=== PATIENT | female | born 1960 | race Caucasian/White ===

== ENCOUNTER 2018-07-13 10:57 | Emergency (ER) | payer OTHER ==
[~2018-07-13] VITALS: Ht 160 cm; Wt 83.0 kg
[2018-07-13] MEDS ORDERED: HYZAAR 100-12.1 EACH PO (11:12)
[2018-07-13] MEDS ORDERED: LOSARTAN POTAS100 MG PO (11:13)
[2018-07-13] MEDS ORDERED: NEURONTIN600 MG PO (11:13)
[2018-07-13] MEDS ORDERED: TOPROL XL50 M1 PO (11:13)
== END 2018-07-13 15:39 | disposition home or self-care (01) ==
LOC: ER 10:57
DX: S93.602A Unspecified sprain of left foot, initial encounter (principal); X50.0XXA Overexertion from strenuous movement or load, initial encounter; X50.9XXA Other and unspecified overexertion or strenuous movements or postures, initial encounter; Y93.41 Activity, dancing; Y92.89 Other specified places as the place of occurrence of the external cause; Y99.8 Other external cause status; M77.52 Other enthesopathy of left foot and ankle

== ENCOUNTER 2022-09-20 11:31 | Inpatient (IN) | payer OTHER ==
[~2022-09-20] VITALS: Ht 160 cm; Wt 84.4 kg
[~2022-09-20 11:31] MED LIST: HYZAAR 100-12.1 EACH PO; LOSARTAN POTAS100 MG PO; NEURONTIN600 MG PO; TOPROL XL50 M1 PO
--- NOTE | 2022-09-20 12:12 | NUR ---
SE RECIBE FEMINA ALERTA Y ORIENTADA POR MANISHA ESFERAS, AMBULANDO. REFEIRE QUE PRESENTA DOLOR ABDOMINAL DESDE MAHAD Y NAUSEAS.
--- NOTE | 2022-09-20 13:36 | NUR ---
SE LE ORIENTA A PACIENTE SOBRE LAS ORDENES MEDICAS, REFIERE ENTEDER LAS MISMAS. SE CANALIZA Y SE LE COLOCA LOS IVF'S, SE LE AMARILYS LAS MUETRAS, SE LE AEDMINISTRAN LOS MEDICAMENTOS Y SE NOTIFICA SONOGRAMA ABDOMINAL JOSE ALFREDO LAS ORDENES MEDICAS.
== END 2022-09-22 22:10 | disposition home or self-care (01) | DRG 866 ==
LOC: ER 11:31 → SEC-K 20:52 → MEDJ 09-21 15:42
PROVIDERS: ADMIT Internal Medicine; ATTEND Internal Medicine
PROC: BW21ZZZ Computerized Tomography (CT Scan) of Abdomen and Pelvis (ICD-10-PCS; principal; 2022-09-20)
DX: A90 Dengue fever [classical dengue] (principal); N17.8 Other acute kidney failure; N18.4 Chronic kidney disease, stage 4 (severe); E87.20 Acidosis, unspecified; M35.00 Sjogren syndrome, unspecified; I12.9 Hypertensive chronic kidney disease with stage 1 through stage 4 chronic kidney disease, or unspecified chronic kidney disease; D72.818 Other decreased white blood cell count; D69.6 Thrombocytopenia, unspecified; F41.9 Anxiety disorder, unspecified; Z20.822 Contact with and (suspected) exposure to COVID-19